=== PATIENT | female | born 1955 | race Caucasian/White ===

== ENCOUNTER → 2016-12-29 | Outpatient (CLI) | payer BC | LOC: RAD 08:13 | PROVIDERS: ATTEND Obstetrics & Gynecology | DX: Z12.31 Encounter for screening mammogram for malignant neoplasm of breast (principal) ==

== ENCOUNTER → 2017-01-12 | Outpatient (CLI) | payer BC ==
--- NOTE | 2017-01-12 11:12 | Diagnostic Imaging Report ---
INDICATION: Asymmetric density on screening mammography. EXAMINATION: Right breast sonogram on 01/12/2017. TECHNIQUE: Grayscale and color Doppler ultrasound imaging of the right breast was performed from the 11 to 12 o'clock positions. There is a very small nonspecific hypoechoic area which is a likely benign process. Peripheral echogenicity is noted and this is centrally hypoechoic measuring 0.2 x 0.2 x 0.1 cm. This is likely unrelated to the findings on mammography. No other lesions are appreciated. No abnormal vascularity is seen in the region. IMPRESSION: The finding described above is likely an incidental finding and has a probably benign appearance. The mammographic findings are likely caused by overlapping fibroglandular tissues but a 6 month followup could assure stability. ACR BI-RADS Category 3: Probably benign findings. Result letter will be mailed to the patient. Note: At least 10% of breast cancer is not imaged by mammography. Dictated by: Dictated on workstation # [id number]
--- NOTE | 2017-01-12 19:45 | Diagnostic Imaging Report ---
INDICATION: Density on screening mammogram. EXAMINATION: Right breast diagnostic mammogram dated 01/12/2017. COMPARISON: 12/29/2016, 01/21/2015, and 08/18/2013. The current study was also evaluated with a Computer Aided Detection (CAD) system. FINDINGS: The previously questioned density within the right mid breast persists upon spot compression imaging although on one of the spot compression images it is less dense. It is not appreciated on the MLO view but is likely corresponding to fibroglandular tissues in the upper half of the breast. Sonography of the region was performed. A small hypoechoic area is seen which is likely incidental with otherwise negative sonogram. IMPRESSION: 1. Findings described above most likely on the basis of overlapping fibroglandular tissues; however, a six-month follow-up mammogram and sonogram could be performed to assure stability. ACR BI-RADS Category 3: Probably benign findings. Result letter will be mailed to the patient. Note: At least 10% of breast cancer is not imaged by mammography. Dictated by: Dictated on workstation # [id number]
== END ==
LOC: RAD 09:58
PROVIDERS: ATTEND Obstetrics & Gynecology
DX: R92.2 Inconclusive mammogram (principal)
CPT/HCPCS: 76642; G0206

== ENCOUNTER → 2017-02-13 | Outpatient (CLI) | payer BC ==
[2017-02-13 08:36] LABS: ALBUMIN 4.4 g/dL (3.4-5.0); ANION GAP 16.5 MEQ/L (3-15); CALCULATED IONIZED CALCIUM 4.2 mg/dL (3.8-4.6); TOTAL PROTEIN 7.3 g/dL (6.4-8.5)
== END ==
LOC: LAB 07:40
PROVIDERS: ATTEND Obstetrics & Gynecology
DX: R73.03 Prediabetes (principal); E78.5 Hyperlipidemia, unspecified; E03.9 Hypothyroidism, unspecified
CPT/HCPCS: 36415; 80053; 80061; 84443